=== PATIENT | female | born 1980 | race Caucasian/White ===

== ENCOUNTER 2018-01-10 00:21 | Emergency (ER) | payer OTHER ==
[2018-01-10 00:46] LABS: Bilirubin Negative (Negative); Blood, Urine Large (Negative); Clarity CLOUDY (Clear); Glucose, Urine (Dipstick) Negative (Negative); Leukocyte Trace (Negative); Nitrite Negative (Negative); Pregnancy Test - Urine (BHCG) Negative (Negative); Pregu Control Background? CLEAR/WHITE (CLR/WHITE); Pregu Control Bar Appear? YES (CONTROL BAR); Protein, Urine (Dipstick) Negative (Neg-Trace); Specific Gravity 1.026 (1.002-1.036); Specific Gravity, Urine 1.026 (1.002-1.036); pH, Urine 5.5 (5.0-9.0)
[2018-01-10 00:49] LABS: Bacteria/HPF None Seen HPF (None Seen); Hyaline Casts/LPF 0-3 HYALINE CAST LPF (0-3 Hyaline); Pathc Cast-AUWi Flag 0.14 (0-2.49); WBC/HPF 0-3 HPF (0-3)
[2018-01-10 00:51] LABS: #Basophils 0.1 thou/uL (0.0-0.2); #Eosinphils 0.1 thou/uL (0.0-0.7); #Lymphocytes 1.3 thou/uL (1.20-3.40); #Monocytes 0.7 thou/uL (0.11-0.59); #Neutrophils 7.9 thou/uL (1.40-6.50); %Basophils 0.7 % (0.0-1.0); %Eosinophils 0.7 % (0.0-10.0); %Lymphocytes 12.7 % (21.0-51.0); %Monocytes 7.3 % (0.0-10.0); %Neutrophils 78.5 % (42.0-75.0); Hemoglobin 14.6 g/dL (12.0-16.0); Mean Corpuscular HGB CONC 33.3 g/dL (32.0-36.0); Mean Corpuscular Hemoglobin 30.1 pg (27.0-31.0); Mean Corpuscular Volume 90.6 fl (81.0-99.0); Mean Platelet Volume 8.9 fL (7.4-10.4); Platelet Count 174 thou/uL (130-400); RBC Distribution Width 12.7 % (11.5-14.5); Red Blood Cell (RBC) Count 4.86 mill/uL (4.20-5.40)
[2018-01-10 01:09] LABS: ALT (SGPT) 23 U/L (8-55); AST (SGOT) 17 U/L (5-34); Alkaline Phosphatase 67 U/L (40-150); Anion Gap 12 mmol/L (10-20); BUN (Urea Nitrogen) 12 mg/dL (7.0-18.7); Bilirubin, Total 0.7 mg/dL (0.2-1.2); CK (CPK) 37 U/L (29-168); Calc. Creatinine Clearance 0 mL/min (70-130); Calcium 8.5 mg/dL (7.8-10.44); Carbon Dioxide 25 mmol/L (22-29); Chloride 103 mmol/L (98-107); Estimated GFR-MDRD 85; Globulin 3.1 g/dL (2.4-3.5); Glucose 112 mg/dL (70-105); Potassium 3.6 mmol/L (3.5-5.1); Protein, Total 7.1 g/dL (6.0-8.3); Sodium 136 mmol/L (136-145)
[2018-01-10 01:14] LABS: CKMB 0.2 ng/mL (0-6.6); Troponin I Less than 0.010 ng/mL (< 0.028)
[2018-01-10] MEDS ORDERED: Ondansetron ODT 4 MG TAB ONE (02:28)
[2018-01-10 02:51] LABS: Amphetamine Not Detected (NotDetected); Barbiturates Screen Not Detected (NotDetected); Benzodiazepine Screen Not Detected (NotDetected); Cocaine Metabolite Screen Not Detected (NotDetected); Medtox Control Line Valid? VALID (VALID); Medtox Reader # READER 4; Methadone Not Detected (NotDetected); Methamphetamine Not Detected (NotDetected); Opiate Screen Detected (NotDetected); Oxycodone Screen Not Detected (NotDetected); Phencyclidine (PCP) Not Detected (NotDetected); THC/Cannabinoid Screen Not Detected (NotDetected); Tricyclic Screen Not Detected (NotDetected)
[2018-01-10] MEDS ORDERED: Promethazine HCl 25 MG/ML VIAL ONE (03:41)
[2018-01-10] MEDS ORDERED: Acetaminophen 500 MG TAB ONE (04:35)
--- NOTE | 2018-01-10 08:42 | RAD ---
PORTABLE CHEST 1 VIEW: Date: 01/10/18 Time: 0058 hours HISTORY: Chest pain, vomiting, and diarrhea. FINDINGS: Comparison made with exam of 05/24/16. The heart size is normal. The lungs are expanded without focal areas of consolidation, pneumothorax, or pleural effusions. IMPRESSION: No radiographic evidence of acute cardiopulmonary process. POS: [facility]
== END 2018-01-10 04:44 | disposition home or self-care (01) ==
LOC: ERS 00:21
DX: R11.2 Nausea with vomiting, unspecified (principal); R00.2 Palpitations; R19.7 Diarrhea, unspecified; R07.9 Chest pain, unspecified; E03.9 Hypothyroidism, unspecified; F41.9 Anxiety disorder, unspecified; F32.9 Major depressive disorder, single episode, unspecified; Z79.899 Other long term (current) drug therapy
CPT/HCPCS: 36415; 71045; 80053; 80306; 81003; 81015; 81025; 82553; 84484; 85025; 93005; 96361; 96374; J2550; Q0162

== ENCOUNTER 2018-02-28 14:57 | Outpatient (CLI) | payer OTHER, MEDICAID | END 2018-02-28 14:58 | disposition home or self-care (01) | LOC: BICMAMMO 14:57 | PROVIDERS: ATTEND Student in an Organized Health Care Education/Training Program | DX: Z12.31 Encounter for screening mammogram for malignant neoplasm of breast (principal) | CPT/HCPCS: 77063; 77067 ==

== ENCOUNTER 2018-07-11 19:40 | Emergency (ER) | payer OTHER ==
[2018-07-11 20:09] LABS: #Eosinphils 0.2 thou/uL (0.0-0.7); #Lymphocytes 2.4 thou/uL (1.20-3.40); #Monocytes 0.8 thou/uL (0.11-0.59); #Neutrophils 4.8 thou/uL (1.40-6.50); %Basophils 0.5 % (0.0-1.0); %Eosinophils 2.6 % (0.0-10.0); %Lymphocytes 29.4 % (21.0-51.0); %Monocytes 9.2 % (0.0-10.0); %Neutrophils 58.2 % (42.0-75.0); Hemoglobin 14.6 g/dL (12.0-16.0); Mean Corpuscular Hemoglobin 30.1 pg (27.0-31.0); Mean Corpuscular Volume 88.6 fL (78.0-98.0); Mean Platelet Volume 8.8 fL (7.4-10.4); Platelet Count 260 thou/uL (130-400); RBC Distribution Width 12.2 % (11.5-14.5); Red Blood Cell (RBC) Count 4.84 mill/uL (4.20-5.40); White Blood Cell (WBC) Count 8.2 thou/uL (4.8-10.8)
[2018-07-11] MEDS ORDERED: Acetaminophen 325 MG TAB ONE (20:30)
[2018-07-11] MEDS ORDERED: Ondansetron ODT 4 MG TAB ONE ×2 (20:30→23:22)
[2018-07-11 20:38] LABS: BHCG - Serum Negative (NEGATIVE); Pregs Control Background? CLEAR/WHITE (CLR/WHITE); Pregs Control Bar Appear? YES (CONTROL BAR)
--- NOTE | 2018-07-11 23:35 | ULT ---
PELVIC ULTRASOUND INCLUDING TRANSABDOMINAL, TRANSVAGINAL, AND VASCULAR DUPLEX WITH COLOR AND SPECTRAL DOPPLER IMAGIN07/11/18 HISTORY: 37-year-old female with history of heavy vaginal bleeding for two days. Uterus measures 8.1 x 3.9 x 5.1 cm with an endometrium measuring 0.7 cm. Right and left ovaries are w ithin normal limits. Vascular flow is documented to both ovaries. No evidence for ovarian torsion. No abscess or abnormal fluid collection. IMPRESSION: Unremarkable pelvic ultrasound. POS: [facility]
[2018-07-12] MEDS ORDERED: Ibuprofen 200 MG TAB ONE (00:08)
[2018-07-12] MEDS ORDERED: Promethazine 25 MG TAB ONE (00:08)
== END 2018-07-12 00:19 | disposition home or self-care (01) ==
LOC: ERS 19:40
DX: N93.9 Abnormal uterine and vaginal bleeding, unspecified (principal); E03.9 Hypothyroidism, unspecified; F41.9 Anxiety disorder, unspecified; F32.9 Major depressive disorder, single episode, unspecified
CPT/HCPCS: 36415; 76856; 84702; 84703; 85025; 86900; 86901; Q0162

== ENCOUNTER 2018-11-10 23:46 | Emergency (ER) | payer OTHER ==
[2018-11-11 00:17] LABS: #Basophils 0.1 thou/uL (0.0-0.2); #Eosinphils 0.1 thou/uL (0.0-0.7); #Lymphocytes 2.9 thou/uL (1.20-3.40); #Monocytes 0.9 thou/uL (0.11-0.59); #Neutrophils 8.8 thou/uL (1.40-6.50); %Basophils 0.5 % (0.0-1.0); %Eosinophils 0.5 % (0.0-10.0); %Lymphocytes 22.9 % (21.0-51.0); %Monocytes 6.8 % (0.0-10.0); %Neutrophils 69.3 % (42.0-75.0); Hemoglobin 13.4 g/dL (12.0-16.0); Mean Corpuscular HGB CONC 33.2 g/dL (32.0-36.0); Mean Corpuscular Hemoglobin 28.8 pg (27.0-31.0); Mean Corpuscular Volume 86.7 fL (78.0-98.0); Mean Platelet Volume 8.7 fL (7.4-10.4); Platelet Count 186 thou/uL (130-400); RBC Distribution Width 13.6 % (11.5-14.5); Red Blood Cell (RBC) Count 4.65 mill/uL (4.20-5.40); White Blood Cell (WBC) Count 12.6 thou/uL (4.8-10.8)
[2018-11-11 00:26] LABS: Bilirubin Small (Negative); Blood, Urine Negative (Negative); Clarity Cloudy (Clear); Glucose, Urine (Dipstick) Negative (Negative); Leukocyte Negative (Negative); Nitrite Negative (Negative); Protein, Urine (Dipstick) 30 mg/dL (Neg-Trace); Urobilinogen 0.2 mg/dL (0.2-1.0); pH, Urine 5.5 (5.0-9.0)
[2018-11-11 00:36] LABS: Bacteria/HPF Rare-Few HPF (None Seen); Hyaline Casts/LPF NONE SEEN LPF (0-3 Hyaline); RBC/HPF 0-3 HPF (0-3); WBC/HPF 0-3 HPF (0-3)
--- NOTE | 2018-11-11 07:20 | ULT ---
PELVIC ULTRASOUND WITH TOURE SCALE AND DOPPLER COLOR FLOW IMAGING AND SPECTRAL ANALYSIS: Date: 11/11/18 Transvaginal pelvic ultrasound performed. INDICATION: Left lower quadrant pain. FINDINGS: There is a mildly prominent endometrium with an internal small focus of decreased echogenicity, circu mscribed in morphology. Physiologic appearing cysts are seen at the left ovary. Doppler evaluation does reveal flow to each o vary. Nonspecific mild free pelvic fluid is present. IMPRESSION: Circumscribed tiny hypoechoic focus of the endometrial region with a proliferative endometrium. This could relate to a very early intrauterine with gestational sac, although the finding is too small to definitively characterize. Therefore, correlation is necessary with beta HCG values, as wel l as imaging follow-up for continued evaluation. CODE T. POS: [facility]
[2018-11-13 00:19] LABS: Chlamydia by PCR Not Detected (NotDetected); GC by PCR Not Detected (NotDetected)
== END 2018-11-11 01:52 | disposition home or self-care (01) ==
LOC: SCSER 23:46
DX: O09.31 Supervision of pregnancy with insufficient antenatal care, first trimester (principal); O99.89 Other specified diseases and conditions complicating pregnancy, childbirth and the puerperium; R10.2 Pelvic and perineal pain; O99.281 Endocrine, nutritional and metabolic diseases complicating pregnancy, first trimester; E03.9 Hypothyroidism, unspecified; O99.341 Other mental disorders complicating pregnancy, first trimester; F41.9 Anxiety disorder, unspecified; F32.9 Major depressive disorder, single episode, unspecified; Z3A.01 Less than 8 weeks gestation of pregnancy
CPT/HCPCS: 76856; 81003; 81015; 84702; 85025; 87480; 87491; 87510; 87591; 87660

== ENCOUNTER 2018-11-16 17:56 | Emergency (ER) | payer OTHER ==
--- NOTE | 2018-11-16 20:19 | ULT ---
PELVIC ULTRASOUND: History: Patient states they have been fertility medication x 5 months. Vaginal bleeding with clots f or the last two hours. History of a left sided ectopic. Comparison: 11-11-18 FINDINGS: Real-time imaging of the pelvis was obtained both transabdominally as well as with an endovaginal pro be. This shows a uterus measuring 5.1 x 6.4 x 9.7 cm. Endometrium is very thickened and heterogeneous measuring 1.6 cm. There is a tiny cystic structure in the lower uterine segment. This is probably th e same cystic structure that was seen in the fundus region on the previous exam, possibly a remnant o f a gestational sac. Correlation with Beta HCG is recommended. The right ovary is normal in appearance. Follicles are again seen involving the left adnexa. DOPPLER EVALUTION WITH SPECTRAL ANALYSIS: Normal flow is shown to the adnexal regions. IMPRESSION: Thickened heterogeneous endometrium. The small cystic structure that was seen in the fundus region of the uterus on the prior examination now appears to be in the lower uterine segment. It is possible t hat this is a remnant of a gestational sac> correlation with the patient's Beta HCG is recommended. POS: [facility]
[2018-11-16] MEDS ORDERED: Acetaminophen 500 MG TAB ONE (21:11)
--- NOTE | 2018-11-17 00:04 | CON ---
DATE OF CONSULTATION: 11/16/2018 CONSULTING PHYSICIAN: Rachel Wallace MD, emergency department. CHIEF COMPLAINT: Vaginal bleeding, early . HISTORY OF PRESENT ILLNESS: This is a 37-year-old, G2, P0-0-1-0, patient of Dr. Meka Melendrez, who presented to the emergency department for vaginal bleeding that started a few hours ago. She reports that she is approximately 6 weeks and conceived with infertility treatments. She was seen about a week ago in [facility] for cramping and at that time had an HCG level of 808, there was a thickened endometrium with a small hypoechoic structure in the fundus. Today she presented to the emergency department with moderate vaginal bleeding and passage of clots. Her HCG was noted to have risen to 4961 and the hypoechoic structure previously seen was down in the lower uterine segment. The patient has had mild cramping today and nothing significant in the way of pain. REVIEW OF SYSTEMS: Negative for head, eyes, ears, nose, throat, cardiovascular, respiratory, GI, , neuro, psych, musculoskeletal, skin, or constitutional symptoms other than mentioned above. OB HISTORY: One prior ectopic treated with methotrexate. PAST MEDICAL HISTORY: 1. PCOS. 2. Hypothyroidism. 3. Morbid obesity. PAST SURGICAL HISTORY: 1. Cholecystectomy. 2. Laparoscopic ovarian cystectomy. MEDICATIONS: 1. Metformin. 2. Levothyroxine. ALLERGIES: REGLAN. SOCIAL HISTORY: Negative for tobacco, alcohol, or drug abuse. This was a desired and her is present here with her. FAMILY HISTORY: Negative for breast, ovary, uterine, or colon cancers. PHYSICAL EXAMINATION: VITAL SIGNS: Afebrile with normal vital signs. GENERAL: Awake, alert, in no acute distress. CHEST: Nonlabored breathing. ABDOMEN: Obese, soft, nontender to palpation. PELVIC: Deferred. LABORATORY DATA: HCG 4961, up from 808 five days ago. IMAGING: Transvaginal ultrasound was performed by Radiology, which revealed a thickened heterogeneous endometrium with the small cystic structure noted on the lower uterine segment. No adnexal masses or free fluid were noted. Normal flow to both adnexa. ASSESSMENT AND PLAN: A 37-year-old, G2, P0-0-1-0 with incomplete miscarriage. The patient was counseled extensively on this. We discussed management options including expectant management versus medical management at this point. The patient declined Cytotec at this time and would like to proceed with expectant management for now. She will call Dr. Melendrez's office on Tuesday to try and get in to be seen. She was given bleeding precautions and will return if needed. Job ID: [id number] MTDD
== END 2018-11-16 21:15 | disposition home or self-care (01) ==
LOC: ERS 17:56
DX: O03.4 Incomplete spontaneous abortion without complication (principal); E03.9 Hypothyroidism, unspecified; F32.9 Major depressive disorder, single episode, unspecified; Z77.22 Contact with and (suspected) exposure to environmental tobacco smoke (acute) (chronic); Z79.899 Other long term (current) drug therapy
CPT/HCPCS: 36415; 76856; 84702; 86900; 86901

== ENCOUNTER 2018-11-27 12:55 | Emergency (ER) | payer OTHER ==
[2018-11-27 14:23] LABS: #Eosinphils 0.1 thou/uL (0.0-0.7); #Lymphocytes 2.1 thou/uL (1.20-3.40); #Monocytes 0.8 thou/uL (0.11-0.59); #Neutrophils 5.7 thou/uL (1.40-6.50); %Basophils 0.5 % (0.0-1.0); %Eosinophils 1.5 % (0.0-10.0); %Lymphocytes 24.5 % (21.0-51.0); %Monocytes 8.6 % (0.0-10.0); %Neutrophils 64.9 % (42.0-75.0); Hemoglobin 13.9 g/dL (12.0-16.0); Mean Corpuscular HGB CONC 33.1 g/dL (32.0-36.0); Mean Corpuscular Hemoglobin 29.9 pg (27.0-31.0); Mean Corpuscular Volume 90.2 fL (78.0-98.0); Mean Platelet Volume 9.7 fL (7.4-10.4); Platelet Count 216 thou/uL (130-400); RBC Distribution Width 12.9 % (11.5-14.5); Red Blood Cell (RBC) Count 4.65 mill/uL (4.20-5.40); White Blood Cell (WBC) Count 8.7 thou/uL (4.8-10.8)
[2018-11-27 14:27] LABS: Bilirubin Negative (Negative); Blood, Urine Large (Negative); Clarity CLOUDY (Clear); Glucose, Urine (Dipstick) Negative (Negative); Leukocyte Negative (Negative); Nitrite Negative (Negative); Protein, Urine (Dipstick) Negative (Neg-Trace); Specific Gravity, Urine 1.025 (1.002-1.036); Urobilinogen 0.2 mg/dL (0.2-1.0)
[2018-11-27 14:29] LABS: Bacteria/HPF 1+ HPF (None Seen); Hyaline Casts/LPF 4-6 HYALINE CAST LPF (0-3 Hyaline); Pathc Cast-AUWi Flag 1.08 (0-2.49); Squamous Epithelial 21-50 HPF (0-3)
[2018-11-27 14:41] LABS: BHCG - Serum Indeterminate (NEGATIVE); Pregs Control Background? CLEAR/WHITE (CLR/WHITE); Pregs Control Bar Appear? YES (CONTROL BAR)
[2018-11-27 14:50] LABS: ALT (SGPT) 18 U/L (8-55); AST (SGOT) 16 U/L (5-34); Albumin 4.1 g/dL (3.5-5.0); Alkaline Phosphatase 61 U/L (40-150); Anion Gap 11 mmol/L (10-20); BUN (Urea Nitrogen) 10 mg/dL (7.0-18.7); Bilirubin, Total 0.5 mg/dL (0.2-1.2); Calc. Creatinine Clearance 0 mL/min (70-130); Carbon Dioxide 22 mmol/L (22-29); Chloride 108 mmol/L (98-107); Estimated GFR-MDRD Greater than 90; Globulin 3.2 g/dL (2.4-3.5); Glucose 85 mg/dL (70-105); Potassium 3.7 mmol/L (3.5-5.1); Protein, Total 7.3 g/dL (6.0-8.3); Sodium 137 mmol/L (136-145)
--- NOTE | 2018-11-27 16:35 | ULT ---
PELVIC ULTRASOUND COMPLETE INCLUDING TRANSABDOMINAL AND VASCULAR DUPLEX: No transvaginal exam was performed. Comparison: 11-16-18 FINDINGS: The uterus measures 9.4 x 4.5 x 7 cm. Endometrium approximates 1.0 cm and is more well defined than o n the prior study. No evidence for gestational sac. Left ovary measures 2.8 x 3.2 x 2.0 cm. Right ova ry measures 2 x 2.6 x 1.6 cm. No abscess or abnormal fluid collection. No evidence for ovarian or adn exal cysts. IMPRESSION: Normal pelvic ultrasound. No evidence for intrauterine gestational sac or extrauterine . No abnormal fluid collection. If the patient has a persistent positive HCG, recommend continued follow u p serum HCGs for further assessment. No ovarian torsion. POS: [facility]
== END 2018-11-27 17:06 | disposition home or self-care (01) ==
LOC: ERS 12:55
DX: N93.9 Abnormal uterine and vaginal bleeding, unspecified (principal); R11.2 Nausea with vomiting, unspecified; R19.7 Diarrhea, unspecified; Z79.84 Long term (current) use of oral hypoglycemic drugs; Z79.899 Other long term (current) drug therapy
CPT/HCPCS: 36415; 76856; 80053; 81003; 81015; 84703; 85025

== ENCOUNTER 2023-01-18 22:13 | Emergency (ER) | payer SELFPAY ==
[2023-01-18 22:44] LABS: #Basophils 0.1 thou/uL (0.0-0.2); #Eosinphils 0.5 thou/uL (0.0-0.7); #Monocytes 0.7 thou/uL (0.11-0.59); #Neutrophils 7.3 thou/uL (1.40-6.50); %Basophils 0.6 % (0.0-1.0); %Eosinophils 4.7 % (0.0-10.0); %Lymphocytes 20.4 % (21.0-51.0); %Monocytes 6.1 % (0.0-10.0); %Neutrophils 67.9 % (42.0-75.0); Hemoglobin 15.2 g/dL (12.0-16.0); Mean Corpuscular HGB CONC 33.9 g/dL (32.0-36.0); Mean Corpuscular Hemoglobin 29.7 pg (27.0-31.0); Mean Corpuscular Volume 87.7 fl (78.0-98.0); Mean Platelet Volume 11.1 fL (7.4-10.4); Platelet Count 234 10x3/uL (130-400); RBC Distribution Width 13.5 % (11.5-14.5); Red Blood Cell (RBC) Count 5.11 mill/uL (4.20-5.40); White Blood Cell (WBC) Count 10.8 10x3/uL (4.8-10.8)
[2023-01-18] MEDS ORDERED: Aspirin 325 MG TAB ONE (22:59)
[2023-01-18 23:08] LABS: ALT (SGPT) 16 U/L (8-55); AST (SGOT) 19 U/L (5-34); Albumin 4.4 g/dL (3.5-5.0); Alkaline Phosphatase 66 U/L (40-110); Anion Gap 14 mmol/L (10-20); BUN (Urea Nitrogen) 10 mg/dL (7.0-18.7); Bilirubin, Total 0.9 mg/dL (0.2-1.2); Calc. Creatinine Clearance 0 mL/min (70-130); Calcium 9.6 mg/dL (7.8-10.44); Carbon Dioxide 23 mmol/L (22-29); Chloride 103 mmol/L (98-107); Estimated GFR 104; Globulin 3.6 g/dL (2.4-3.5); Glucose 110 mg/dL (70-105); Lipase 38 U/L (8-78); Potassium 3.5 mmol/L (3.5-5.1); Sodium 136 mmol/L (136-145)
== END 2023-01-18 23:58 | disposition home or self-care (01) ==
LOC: ERS 22:13
DX: R07.89 Other chest pain (principal); J42 Unspecified chronic bronchitis; E11.9 Type 2 diabetes mellitus without complications; E03.9 Hypothyroidism, unspecified; Z79.84 Long term (current) use of oral hypoglycemic drugs
CPT/HCPCS: 71045; 80053; 83690; 83880; 84484; 85025; 85379; 93005

== ENCOUNTER 2023-04-01 11:14 | Observation (INO) | payer MEDICAID, SELFPAY ==
[2023-04-01 11:49] LABS: #Basophils 0.1 thou/uL (0.0-0.2); #Eosinphils 0.2 thou/uL (0.0-0.7); #Monocytes 0.8 thou/uL (0.11-0.59); #Neutrophils 6.2 thou/uL (1.40-6.50); %Basophils 0.6 % (0.0-1.0); %Eosinophils 1.5 % (0.0-10.0); %Lymphocytes 27.9 % (21.0-51.0); %Neutrophils 61.8 % (42.0-75.0); Hematocrit 43.3 % (36.0-47.0); Hemoglobin 14.6 g/dL (12.0-16.0); Mean Corpuscular HGB CONC 33.7 g/dL (32.0-36.0); Mean Corpuscular Volume 88.9 fl (78.0-98.0); Mean Platelet Volume 11.5 fL (7.4-10.4); Platelet Count 230 10x3/uL (130-400); RBC Distribution Width 13.8 % (11.5-14.5); Red Blood Cell (RBC) Count 4.87 mill/uL (4.20-5.40)
[2023-04-01 12:19] LABS: ALT (SGPT) 15 U/L (8-55); AST (SGOT) 16 U/L (5-34); Alkaline Phosphatase 68 U/L (40-110); Anion Gap 14 mmol/L (10-20); BUN (Urea Nitrogen) 8 mg/dL (7.0-18.7); Bilirubin, Total 0.6 mg/dL (0.2-1.2); Calc. Creatinine Clearance 0 mL/min (70-130); Calcium 9.5 mg/dL (7.8-10.44); Carbon Dioxide 22 mmol/L (22-29); Chloride 106 mmol/L (98-107); Estimated GFR 90; Globulin 3.2 g/dL (2.4-3.5); Glucose 123 mg/dL (70-105); Potassium 3.7 mmol/L (3.5-5.1); Protein, Total 7.2 g/dL (6.0-8.3); Sodium 138 mmol/L (136-145)
[2023-04-01 12:20] LABS: Troponin I Less than 0.010 ng/mL (< 0.028)
[2023-04-01] MEDS ORDERED: Acetaminophen 325 MG TAB PO PRN (12:53)
[2023-04-01] MEDS ORDERED: Aspirin 325 MG TAB PO SCH (13:00)
[2023-04-01] MEDS ORDERED: Dextrose 5% in Water 1,000 ML IV PRN (13:12)
[2023-04-01] MEDS ORDERED: HumaLOG 300 UNITS/3 ML VIAL SC PRN ×2 (13:12)
[2023-04-01] MEDS ORDERED: Dextrose 50% Abboject 50 ML SYRINGE SLOW IVP PRN (13:12)
[2023-04-01] MEDS ORDERED: Glucagon 1 MG/ML KIT IM PRN (13:12)
[2023-04-01 14:05] LABS: Hemoglobin A1c 5.7 % (4.0-6.0)
[2023-04-01 15:16] VITALS: BMI 36.6
[2023-04-01] MEDS: Famotidine/PF 20 mg/2ml Vial SLOW IVP SCH (20:27)
[2023-04-01] MEDS: Famotidine 20 MG TAB PO SCH (20:28)
[2023-04-02 03:28] LABS: #Basophils 0.1 thou/uL (0.0-0.2); #Eosinphils 0.2 thou/uL (0.0-0.7); #Monocytes 0.8 thou/uL (0.11-0.59); #Neutrophils 5.1 thou/uL (1.40-6.50); %Basophils 0.5 % (0.0-1.0); %Eosinophils 1.8 % (0.0-10.0); %Lymphocytes 37.7 % (21.0-51.0); %Monocytes 8.3 % (0.0-10.0); %Neutrophils 51.5 % (42.0-75.0); Hematocrit 44.5 % (36.0-47.0); Hemoglobin 14.8 g/dL (12.0-16.0); Mean Corpuscular HGB CONC 33.3 g/dL (32.0-36.0); Mean Corpuscular Hemoglobin 29.4 pg (27.0-31.0); Mean Corpuscular Volume 88.3 fl (78.0-98.0); Mean Platelet Volume 11.6 fL (7.4-10.4); Platelet Count 207 10x3/uL (130-400); RBC Distribution Width 13.8 % (11.5-14.5); Red Blood Cell (RBC) Count 5.04 mill/uL (4.20-5.40); White Blood Cell (WBC) Count 9.8 10x3/uL (4.8-10.8)
[2023-04-02 03:56] LABS: Anion Gap 11 mmol/L (10-20); BUN (Urea Nitrogen) 10 mg/dL (7.0-18.7); Calc. Creatinine Clearance 146 mL/min (70-130); Calcium 9.2 mg/dL (7.8-10.44); Carbon Dioxide 25 mmol/L (22-29); Cardiac Risk 4.6 (Less than 4.5); Chloride 106 mmol/L (98-107); Cholesterol 158 mg/dl (< 200 Desired); Estimated GFR 104; Glucose 107 mg/dL (70-105); HDL Cholesterol 34 mg/dL (>60 Neg Risk); LDL Cholesterol, Calculated 103 mg/dL; Potassium 3.8 mmol/L (3.5-5.1); Sodium 138 mmol/L (136-145); Triglycerides 103 mg/dL (Less than 150)
[2023-04-02 04:01] LABS: Troponin I 0.012 ng/mL (< 0.028)
[2023-04-02] MEDS ORDERED: Aspirin Chewable 81 MG TAB PO SCH (09:00)
[2023-04-02] MEDS: Famotidine/PF 20 mg/2ml Vial SLOW IVP SCH (12:03)
[2023-04-02] MEDS: Famotidine 20 MG TAB PO SCH (12:08)
[2023-04-02] MEDS ORDERED: ADENOSINE 60 MG/20 ML SDV ONE (12:52)
[2023-04-02 15:19] VITALS: BP 120/74; TEMP 98.5
[2023-04-02] MEDS ORDERED: Atorvastatin Calcium 40 MG TAB PO SCH (21:00)
== END 2023-04-02 15:30 | disposition home or self-care (01) ==
LOC: ERS 11:14 → 2SW 12:50
PROVIDERS: ADMIT Internal Medicine; ATTEND Internal Medicine
DX: R07.9 Chest pain, unspecified (principal); E11.9 Type 2 diabetes mellitus without complications; E03.9 Hypothyroidism, unspecified; E78.5 Hyperlipidemia, unspecified; F32.A Depression, unspecified; Z88.8 Allergy status to other drugs, medicaments and biological substances; Z79.899 Other long term (current) drug therapy; Z79.84 Long term (current) use of oral hypoglycemic drugs; Z79.890 Hormone replacement therapy
CPT/HCPCS: 36415; 36416; 71045; 78452; 80048; 80053; 80061; 83036; 83735; 84484; 85025; 93005; 93017; 94760; A9500; G0378; J0153; J1815

== ENCOUNTER 2023-07-07 19:03 | Emergency (ER) | payer SELFPAY ==
[2023-07-07] MEDS ORDERED: LORazepam 2 MG/ML SYR.(CARPUJECT) ONE (19:26)
[2023-07-07 19:42] LABS: #Eosinphils 0.1 thou/uL (0.0-0.7); #Neutrophils 6.9 thou/uL (1.40-6.50); %Basophils 0.4 % (0.0-1.0); %Eosinophils 0.6 % (0.0-10.0); %Lymphocytes 26.1 % (21.0-51.0); %Neutrophils 63.5 % (42.0-75.0); Hematocrit 42.5 % (36.0-47.0); Hemoglobin 14.2 g/dL (12.0-16.0); Mean Corpuscular HGB CONC 33.4 g/dL (32.0-36.0); Mean Corpuscular Hemoglobin 29.1 pg (27.0-31.0); Mean Corpuscular Volume 87.1 fl (78.0-98.0); Platelet Count 270 10x3/uL (130-400); RBC Distribution Width 13.5 % (11.5-14.5); Red Blood Cell (RBC) Count 4.88 mill/uL (4.20-5.40); White Blood Cell (WBC) Count 10.9 10x3/uL (4.8-10.8)
[2023-07-07 19:58] LABS: BHCG - Serum Negative (NEGATIVE); Pregs Control Background? CLEAR/WHITE (CLR/WHITE); Pregs Control Bar Appear? YES (CONTROL BAR)
[2023-07-07 20:00] LABS: Bacteria/HPF None Seen HPF (None Seen); Bilirubin Negative (Negative); Blood, Urine Negative (Negative); CAUTI Indications for Culture Alt mental st,lethar; Clarity Clear (Clear); Glucose, Urine (Dipstick) Normal (Negative); Ketone, Urine Negative (Negative); Leukocyte Negative Leu/uL (Negative); Nitrite Negative (Negative); Protein, Urine (Dipstick) Negative (Neg-Trace); RBC/HPF 0-3 HPF (0-3); Specific Gravity, Urine 1.009 (1.002-1.036); Squamous Epithelial 0-3 HPF (0-3); WBC/HPF 0-3 HPF (0-3)
[2023-07-07 20:01] LABS: Urine Culture Reflex No No
[2023-07-07 20:03] LABS: Amphetamine Detected (NotDetected); Barbiturates Screen Not Detected (NotDetected); Benzodiazepine Screen Not Detected (NotDetected); Cocaine Metabolite Screen Not Detected (NotDetected); Methadone Not Detected (NotDetected); Methamphetamine Detected (NotDetected); Opiate Screen Not Detected (NotDetected); Oxycodone Screen Not Detected (NotDetected); Phencyclidine (PCP) Not Detected (NotDetected); THC/Cannabinoid Screen Not Detected (NotDetected); Tricyclic Screen Not Detected (NotDetected)
[2023-07-07 20:06] LABS: Acetaminophen Less than 10 mcg/mL (10.0-30.0); Alcohol Less than 10.0 mg/dL (Less than 10); Salicylate Less than 8.0 mg/dL (15.0-30.0)
[2023-07-07 20:15] LABS: ALT (SGPT) 10 U/L (8-55); AST (SGOT) 11 U/L (5-34); Albumin 4.1 g/dL (3.5-5.0); Alcohol Less than 10.0 mg/dL (Less than 10); Alkaline Phosphatase 64 U/L (40-110); Anion Gap 13 mmol/L (10-20); BUN (Urea Nitrogen) 9 mg/dL (7.0-18.7); Calc. Creatinine Clearance 0 mL/min (70-130); Calcium 9.7 mg/dL (7.8-10.44); Carbon Dioxide 24 mmol/L (22-29); Chloride 106 mmol/L (98-107); Estimated GFR 106; Globulin 3.1 g/dL (2.4-3.5); Glucose 111 mg/dL (70-105); Potassium 3.4 mmol/L (3.5-5.1); Protein, Total 7.2 g/dL (6.0-8.3); Sodium 140 mmol/L (136-145)
[2023-07-07 20:31] LABS: Bilirubin, Total 0.8 mg/dL (0.2-1.2)
[2023-07-07 20:39] LABS: Troponin I 0.015 ng/mL (< 0.028)
== END 2023-07-07 22:23 | disposition home or self-care (01) ==
LOC: ERS 19:03
DX: F15.10 Other stimulant abuse, uncomplicated (principal); E87.6 Hypokalemia; E11.9 Type 2 diabetes mellitus without complications; E03.9 Hypothyroidism, unspecified; E78.5 Hyperlipidemia, unspecified; Z79.899 Other long term (current) drug therapy
CPT/HCPCS: 36415; 71045; 80053; 80306; 80307; 81001; 83690; 84443; 84484; 84703; 85025; 85379; 93005; 96361; 96374; J2060